=== PATIENT | female | born 1975 | race Caucasian/White ===

== ENCOUNTER → 2018-06-16 14:09 | Outpatient (CLI) | payer OTHER, SELFPAY ==
[2018-06-16 15:32] LABS: Amphetamine/Metha Screen,Urine Negative ng/mL (<1000); Barbiturates Screen,Urine Negative ng/mL (<200); Benzodiazepines Screen,Urine Negative ng/mL (<200); Cannabinoid Screen,Urine Negative ng/mL (<50); Cocaine Screen,Urine Negative ng/mL (<300); Methadone Screen,Urine Negative ng/mL (<300); Opiate Screen,Urine Negative ng/mL (<300); Phencyclidine Screen,Urine Negative ng/mL (<25)
== END ==
PROVIDERS: Visit Provider Emergency Medicine
DX: Z79.899 Other long term (current) drug therapy (principal)
CPT/HCPCS: 80305

== ENCOUNTER → 2018-12-15 17:06 | Outpatient (CLI) | payer OTHER, SELFPAY ==
[2018-12-15 17:41] LABS: Basophils % 0.8 % (0.1-2.0); Eosinophils # 0.2 K/mm3 (0.0-0.4); Hematocrit 26.9 % (37.0-47.0); Lymphocytes # 2.1 K/mm3 (0.7-4.5); Lymphocytes % 41.4 % (10-50); Mean Corpuscular HGB Conc 26.3 g/dL (31.8-35.4); Mean Corpuscular Hemoglobin 17.9 pg (27.0-31.2); Mean Corpuscular Volume 67.9 fl (81-99); Mean Platelet Volume 9.9 fl (7.4-10.4); Monocytes # 0.4 K/mm3 (0.1-1.0); Monocytes % 6.8 % (1.7-9.3); Neutrophils # 2.5 K/mm3 (1.8-7.8); Platelet Count 208 K/mm3 (142-424); Red Blood Count 3.96 M/mm3 (4.20-5.40); Red Cell Distribution Width 19.7 % (11.5-17.5); White Blood Count 5.1 K/mm3 (4.8-10.8)
[2018-12-15 18:01] LABS: Hemoglobin 7.1 g/dL (12.2-16.2)
[2018-12-15 18:34] LABS: Erythrocyte Sedimentation Rate 27 mm/hr (0-20)
[2018-12-15 18:46] LABS: Alanine Aminotransferase 12 U/L (12-78); Albumin Level 3.6 gm/dL (3.4-5.0); Albumin/Globulin Ratio 0.9 (1.1-1.8); Alkaline Phosphatase 70 U/L (46-116); Anion Gap 13.1 mEq/L (5-15); Aspartate Amino Transferase 8 U/L (15-37); Bilirubin,Total 0.3 mg/dL (0.2-1.0); Blood Urea Nitrogen 11 mg/dL (7-18); Calcium 8.6 mg/dL (8.5-10.1); Carbon Dioxide 28 mmol/L (21.0-32.0); Chloride 102 mmol/L (98-107); Chol/HDL Ratio 3.5 (1-3.5); Cholesterol 119 mg/dL (140-200); Creatinine,Serum 0.83 mg/dL (0.55-1.02); Estimated Glomerular Filt Rate 75 ml/min (>60); GFR (African American) 91 ML/MIN (>60); Glucose 83 mg/dL (74-106); HDL Cholesterol 34 mg/dL (29-89); LDL Cholesterol 62 mg/dL (0-130); Potassium 4.1 mmoL/L (3.5-5.1); Sodium 139 mmol/L (136-145); T4 (Thyroxine) 9.1 ug/dl (4.7-13.3); Thyroid Stimulating Hormone 3.84 uIU/ml (0.358-3.740); Total Protein,Serum 7.6 gm/dL (6.4-8.2); Triglycerides 116 mg/dL (30-200); VLDL Cholesterol 23 mg/dL (0-40)
[2018-12-16 18:25] LABS: Ferritin 4 ng/mL (8-388)
[2018-12-17 06:10] LABS: Hep A Ab, IgM Negative (Negative); Hepatitis B Core Antibody IgM Negative (Negative); Hepatitis B Surface Antigen Negative (Negative)
[2018-12-17 13:09] LABS: Anti-Centromere B Antibodies 1.4 AI (0.0-0.9); Anti-Jo-1 <0.2 AI (0.0-0.9); Anti-Smith Antibody <0.2 AI (0.0-0.9); Antichromatin Antibodies <0.2 AI (0.0-0.9); Antiscleroderma-70 Antibodies <0.2 AI (0.0-0.9); RNP Antibodies 1.6 AI (0.0-0.9); Sjogren's Anti-SS-A <0.2 AI (0.0-0.9); Sjogren's Anti-SS-B <0.2 AI (0.0-0.9)
[2018-12-18 08:14] LABS: Iron 16 ug/dL (27-159); UIBC 477 ug/dL (131-425)
[2018-12-18 17:05] LABS: Anti-DNA (DS) Ab Qn 1 IU/mL (0-9); Hepatitis C Antibody <0.1 s/co ratio (0.0-0.9); Vitamin D 25 Hydroxy 21.9 ng/mL (30.0-100.0)
[2018-12-18 17:09] LABS: Iron Saturation 3 % (15-55)
== END ==
PROVIDERS: Visit Provider Nurse Practitioner Family
DX: M54.2 Cervicalgia (principal); D64.9 Anemia, unspecified; R53.83 Other fatigue; Z79.899 Other long term (current) drug therapy
CPT/HCPCS: 80053; 80061; 80074; 82652; 82728; 83540; 83550; 84436; 84443; 85025; 85651; 86225; 86235

== ENCOUNTER → 2023-02-19 10:38 | Outpatient (CLI) | payer OTHER, SELFPAY ==
--- NOTE | 2023-02-19 10:48 | CA_ITS ---
FINAL REPORT TECHNIQUE: Grayscale and color Doppler ultrasound images with graded compression of the deep venous system were obtained from the groin to the calf veins bilaterally. CLINICAL HISTORY: morbid obesity, leg edema x 1 month, HTN, metastatic cancer currently getting chemo. FINDINGS: The deep venous system is normal. There is no evidence of DVT. Flow and compressibility are normal. IMPRESSION: No evidence of left or right lower extremity DVT. Reviewed, Interpreted and Dictated by Piotr Marshall MD Transcribed by Justus Gamez Authenticated and [facility]
--- NOTE | 2023-02-19 10:49 | US_ITS ---
FINAL REPORT CLINICAL HISTORY: ACUTE KIDNEY INJURY FINDINGS: The right kidney measures 11.9 cm in length. It is normal in echogenicity. There is moderate hydronephrosis. The left kidney measures 10.7 cm in length. It is normal in echogenicity. There is moderate hydronephrosis. There is a lobular hypoechoic focus in the right lobe of the liver measuring 3.3 x 1.8 cm consistent with a mass. This does not appear to represent a hemangioma. The spleen is unremarkable. IMPRESSION: Moderate bilateral hydronephrosis. Hepatic mass as above. Recommend abdomen/pelvic CT. Reviewed, Interpreted and Dictated by Piotr Marshall MD Transcribed by Radha Naranjo Authenticated and [facility]
== END ==
PROVIDERS: PCP Physician Assistant; Visit Provider Internal Medicine Hematology & Oncology
DX: D3A.8 Other benign neuroendocrine tumors (principal); N17.9 Acute kidney failure, unspecified
CPT/HCPCS: 76770; 93970; 93971